=== PATIENT | male | born 1990 | race Caucasian/White ===

== ENCOUNTER 2024-06-22 10:14 | Emergency (ER) | payer SELFPAY ==
[2024-06-22 10:23] VITALS: BP 141/105
[2024-06-22 10:44] LABS: % Basophils 2.7 % (0-2); % Eosinophils 5.7 % (0-6); % Immature Granulocytes 0.2 % (0-0.5); % Lymphocytes 25.3 % (20.5-51.1); % Monocytes 9.4 % (1.7-9.3); % Neutrophils 56.7 % (42.2-75.2); Absolute Basophils 0.1 10^3/uL (0-0.2); Absolute Eosinophils 0.3 10^3/uL (0-0.7); Absolute Lymphocytes 1.3 10^3/uL (1.2-3.4); Absolute Monocytes 0.5 10^3/uL (0.1-0.6); Absolute Neutrophils 2.9 10^3/uL (1.4-6.5); Hematocrit 41.1 % (39.0-52.0); Hemoglobin 14.6 g/dL (13.0-18.0); Mean Corp Hgb Conc. 35.5 g/dL (33.0-37.0); Mean Corpuscular Hgb 30.9 pg (27.0-31.0); Mean Corpuscular Volume 86.9 fL (80.0-94.0); Nucleated Red Blood Cells % 0 % (-); Platelet Count 313 10^3/uL (130-400); Red Blood Cell Count 4.73 10^6/uL (4.70-6.10); Red Cell Dist. Width 12.7 % (11.5-14.5); White Blood Cell Count 5.1 10^3/uL (4.8-10.8)
[2024-06-22 10:56] LABS: Urine Albumin Negative (Neg - Trace); Urine Bilirubin Negative (Negative); Urine Character Clear (Clear); Urine Color Yellow; Urine Glucose Negative (Negative); Urine Ketone Negative (Negative); Urine Leukocyte Negative (Negative); Urine Nitrite Negative (Negative); Urine Occult Blood Negative (Negative); Urine Urobilinogen Negative (Neg - 1+)
[2024-06-22 11:02] LABS: ALT (SGPT) 57 U/L (0-50); AST (SGOT) 29 U/L (17-59); Albumin 4.8 g/dl (3.5-5.0); Alkaline Phosphatase 54 U/L (38-126); Blood Urea Nitrogen 11 mg/dl (9-20); Calcium 10.2 mg/dl (8.4-10.2); Carbon Dioxide 23 mmol/L (22-30); Chloride 108 mmol/L (98-107); Glucose 99 mg/dl (70-99); Lipase 97 U/L (23-300); Potassium 4.3 mmol/L (3.5-5.1); Sodium 142 mmol/L (135-145); Total Bilirubin 0.6 mg/dl (0.2-1.3); Total Protein 7.2 g/dl (6.3-8.2); eGFR > 60.00
--- NOTE | 2024-06-22 11:28 | ED.GENMED ---
History of Present Illness
General
Chief Complaint: Flank Pain
Source: patient
Exam Limitations: none
Time Seen by Provider: 06/22/24 11:17
History of Present Illness
History of Present Illness:
See MDM
Past History
Past History
ED Past Medical History: Other (Kidney stones)
ED Past Surgical History: None
Social History
Tobacco: Non-smoker
Alcohol: None
Phy Exam
Physical Exam
Physical Exam:
See MDM
Course
Orders/Labs/Results
Orders:
Orders
06/22/24 10:33
Complete Blood Count/With Diff Urgent
Comprehensive Metabolic Panel Urgent
Creatine Phosphokinase Urgent
Comment: ADD ON
Lipase Urgent
Urinalysis Reflex To Culture Urgent
Date Specimen was Collected: 06/22/24
Time Specimen was Collected: 10:28
06/22/24 11:26
Add On- LAB Urgent
Tests Added?: CPK
CT Abd/pelvis W Iv Cont Urgent
Comment:
Reason For Exam: b/l flank pain and constipation
Abnormal Lab Results
06/22/24
10:33
Monocytes % 9.4 H %
(1.7-9.3)
Basophils % 2.7 H %
(0-2)
Chloride 108 H mmol/L
(98-107)
ALT 57 H U/L
(0-50)
06/22/24 10:33
06/22/24 10:33
Vital Signs
Initial and Last Documented VS:
Initial Vital Signs
Temp Pulse Resp BP Pulse Ox
98.3 F 83 16 141/105 97
06/22/24 10:23 06/22/24 10:23 06/22/24 10:23 06/22/24 10:23 06/22/24 10:23
Last Documented Vital Signs
Temp Pulse Resp BP Pulse Ox
98.3 F 67 14 133/93 99
06/22/24 10:23 06/22/24 13:45 06/22/24 13:45 06/22/24 13:02 06/22/24 13:45
MDM/Problems Addressed
Differential Diagnosis Includes:
HPI and MDM Narrative:
33-year-old male presenting with approximately 1 month of bilateral flank pain, generalized abdominal pain, constipation and bilateral thigh pain. Patient states his biggest concern is that he could have kidney stone or kidney cancer or colon
cancer. He states he went to an outside hospital and did not like the care that he received so he came here.
On exam, he is well-appearing nontoxic. The bilateral thigh pain he points to his bilateral quadricep pain. He states he feels a lump there that I cannot appreciate.
Will obtain basic blood work and will add on CPK. We discussed that a CT scan is not necessarily diagnostic of kidney cancers or colon cancers discussed outpatient follow-up with urology or GI if he is truly concerned
Physical exam
General: Well appearing and non-toxic
HEENT: protecting airway. Mildly dry mucous membrane
Neck: appears supple
CV: No evidence of cyanosis
Resp: No accessory muscle use
Abd: Non-distended. No significant tenderness
Back: No significant flank tenderness
Extremities: No deformities. No quadricep abnormality noted
Neuro: alert
Psych: Normal affect
Skin: Intact
Problems Addressed including Acute and Chronic Conditions affecting care:
1. Bilateral flank
Acuity: acute
Prognosis: stable
Details: Urinalysis is negative. Will obtain CT
2. Constipation
Acuity: acute
Prognosis: stable
Details: Will assess stool burden on CT
3. Thigh pain
Acuity: acute
Prognosis: stable
Details: No clinical signs of DVT. Will add on CPK
Updates
Labs and urine without significant abnormality. CT shows concern for mild enteritis. There is incidental pulmonary nodule. I went over the findings with the patient and he received a printout of the blood work and CT findings and discussed
follow-up with PCP
Differential Diagnosis (but not limited to): Rhabdomyolysis, constipation, kidney stone
Testing considered: Renal ultrasound
Drug therapy (if applicable): OTC meds, please see d/c instruction regarding Rx drugs
Amount and/or Complexity of Data Reviewed
Clinical info obtained from: Patient
External data reviewed: N/A
Labs I independently reviewed (but not limited to): White blood cell count normal
Radiology: The CT scan was personally and independently reviewed. In addition, official CT report reviewed.
Pulse Ox: not hypoxic
EKG independently reviewed: N/A
[place]: N/A
Critical Care: N/A
Risk of Complication:
Social Determinants of health: Good social support
Discussed with other providers: N/A
Escalation of Care includes Admit/Obs: After being observed in the Emergency Department, pt stable for discharge.
Occasional wrong word or 'sound a like' substitutions may have occurred due to the inherent limitations of voice recognition software. Read the chart carefully and recognize, using context, where substitutions have occurred.
*Critical Care Note
Total Time (30-74mins, 75-104mins- exclusive of procedures): Not Applicable
ED Attending Note
-
Portions of this chart may have been created with voice recognition software.� Occasional wrong word or��sound alike� substitutions may have occurred due to the inherent limitations of voice recognition software.
Discharge Plan
Departure
Patient Disposition: Home (Routine Discharge)
Date of Disposition: 06/22/24
Time of Disposition: 13:52
Patient with high blood pressure during this ER visit?: No
Discharge Problem:
Abdominal pain
Instructions: Pulmonary nodule, Abdominal Pain, Adult ED
Referrals:
NONE,* [Family Provider] -
Activity Restrictions/Additional Instructions:
Please return for any worsening symptoms.
You may return at any time if you have further concerns.
Please follow up with your doctor at the first available appointment, preferably this week.
As we discussed, the CT of your belly indicated that you could have a small viral infection that should resolve on its own. It did also mention a incidental pulmonary nodule. Please bring in the blood work and the CT findings to your primary
doctor.
Thank you for choosing [facility].
Interventions
Interventions:
*Risk Screen - Suicide Last Done: 06/22/24 11:45
*General Assessment Last Done: 06/22/24 11:45
*Neglect/Abuse Screening Last Done: 06/22/24 11:45
*ED COVID-19 Vaccine History Last Done: 06/22/24 11:45
GO-Lkhkdx-Jjkqbinocg Assessment Last Done: 06/22/24 11:45
ED-Male Genitourinary Assessment Last Done: 06/22/24 11:45
Discharge Date and Time
Print Language: ANDORRAN
[2024-06-22 11:40] VITALS: BP 134/97
[2024-06-22 12:01] VITALS: BP 112/81
[2024-06-22 12:45] LABS: Creatine Phosphokinase 79 U/L (55-170)
[2024-06-22 13:02] VITALS: BP 133/93
== END 2024-06-22 14:13 | disposition home or self-care (01) ==
LOC: EMR 10:14
PROVIDERS: Emergency Medicine; EMERGENCY PHYSICIAN Student in an Organized Health Care Education/Training Program
DX: R10.9 Unspecified abdominal pain (principal); Z87.442 Personal history of urinary calculi
CPT/HCPCS: 99284; 74177; 80053; 81003; 82550; 83690; 85025; Q9967

== ENCOUNTER 2024-09-30 16:22 | Emergency (ER) | payer OTHER, SELFPAY ==
[2024-09-30 16:25] VITALS: BP 116/82
[2024-09-30 17:10] LABS: % Basophils 1.8 % (0-2); % Eosinophils 2.8 % (0-6); % Immature Granulocytes 0.3 % (0-0.5); % Lymphocytes 21.4 % (20.5-51.1); % Monocytes 7.2 % (1.7-9.3); % Neutrophils 66.5 % (42.2-75.2); Absolute Basophils 0.1 10^3/uL (0-0.2); Absolute Eosinophils 0.2 10^3/uL (0-0.7); Absolute Lymphocytes 1.6 10^3/uL (1.2-3.4); Absolute Monocytes 0.6 10^3/uL (0.1-0.6); Absolute Neutrophils 5.1 10^3/uL (1.4-6.5); Hematocrit 42.5 % (39.0-52.0); Hemoglobin 14.7 g/dL (13.0-18.0); Mean Corp Hgb Conc. 34.6 g/dL (33.0-37.0); Mean Corpuscular Hgb 31.1 pg (27.0-31.0); Mean Corpuscular Volume 89.9 fL (80.0-94.0); Mean Platelet Volume 8.9 fL (7.4-10.4); Nucleated Red Blood Cells % 0 % (-); Platelet Count 282 10^3/uL (130-400); Red Blood Cell Count 4.73 10^6/uL (4.70-6.10); Red Cell Dist. Width 12.6 % (11.5-14.5); White Blood Cell Count 7.6 10^3/uL (4.8-10.8)
[2024-09-30 17:17] LABS: INR 0.96; PT 13.3 Sec (11.4-14.6)
[2024-09-30 17:18] LABS: APTT 28.9 Sec (23.4-35.0)
[2024-09-30 17:23] LABS: ALT (SGPT) 19 U/L (0-50); AST (SGOT) 19 U/L (17-59); Alkaline Phosphatase 74 U/L (38-126); Blood Urea Nitrogen 14 mg/dl (9-20); Calcium 9.6 mg/dl (8.4-10.2); Carbon Dioxide 28 mmol/L (22-30); Chloride 99 mmol/L (98-107); Glucose 98 mg/dl (70-99); Potassium 3.7 mmol/L (3.5-5.1); Sodium 135 mmol/L (135-145); Total Protein 7.3 g/dl (6.3-8.2); eGFR > 60.00
[2024-09-30 17:32] LABS: Troponin I < 0.012 ng/ml
--- NOTE | 2024-09-30 17:56 | ED.GENMED ---
History of Present Illness
General
Chief Complaint: Chest Pain
Source: patient
Exam Limitations: none
Time Seen by Provider: 09/30/24 17:30
Nursing documentation reviewed up to this point in time: agreed with
History of Present Illness
History of Present Illness:
Patient is a 33-year male who presents to the ER for evaluation of chest pain off and on for the past several months. He reports he has not in his chest behind the shoulder blades in the left neck and arm. He reports he does have difficulty
breathing when he gets the symptoms. He does have anxiety. He admits he is very anxious over the symptoms. He quit smoking 2 weeks ago but does smoke marijuana and also vapes. He denies any medical history. He just recently started a job as a
[employer] , denies injury but ''does a lot of isaias and sitting in a chair.'
Past History
Past History
ED Past Medical History: Other (Kidney stones)
ED Past Surgical History: None
Social History
Tobacco: Non-smoker
Alcohol: None
Review of Systems
Review of Systems
Allergies reviewed?: Yes
All Other Systems: ROS reviewed and negative except as documented in HPI and ROS
Constitutional: Reports no symptoms; Denies fever, fatigue or chills
Respiratory: Reports trouble breathing
Cardiac: Reports chest pain
ABD/GI: Reports no symptoms
: Reports no symptoms
Musculoskeletal: Reports no symptoms
Skin: Reports no symptoms
Neurological: Reports no symptoms
Psychiatric: Reports no symptoms
Phy Exam
General Physical Exam
General Presentation: no apparent distress
General age: appears stated age
General Skin: warm and dry
General Habitus: normal
General Mental: alert
Cardiovascular Exam
Cardiovascular Exam: regular rate/rhythm and no murmur
Pulmonary Exam
Pulmonary Exam: lungs clear, no respiratory distress and chest non tender
Neurological Exam
Neurological Exam: alert and oriented x3
Musculoskeletal Exam
Musculoskeletal Exam: full ROM and other (No lower extremity swelling)
Skin Exam
Skin Exam: normal color and warm/dry
Psychiatric Exam
Psychiatric Exam: normal mood/affect
Scores
Heart Score for Chest Pain Patients
STEMI patient?: Not applicable
Course
Orders/Labs/Results
Orders:
Orders
09/30/24 16:24
Electrocardiogram (*1) Urgent
Reason for Study: Chest Pain
EKG- Treatment ONCE
09/30/24 16:55
Complete Blood Count/With Diff Urgent
Comprehensive Metabolic Panel Urgent
Protime/PTT Urgent
Troponin I Urgent
09/30/24 17:57
Chest [CR Chest - 2 Views ] Urgent
Comment:
Reason For Exam: cp
09/30/24 18:33
DDimer [D-Dimer] Urgent
Abnormal Lab Results
09/30/24
16:55
MCH 31.1 H pg
(27.0-31.0)
09/30/24 16:55
09/30/24 16:55
Vital Signs
Initial and Last Documented VS:
Initial Vital Signs
Temp Pulse Resp BP Pulse Ox
98.2 F 89 18 116/82 100
09/30/24 16:25 09/30/24 16:25 09/30/24 16:25 09/30/24 16:25 09/30/24 16:25
Last Documented Vital Signs
Temp Pulse Resp BP Pulse Ox
98.2 F 66 18 116/82 98
09/30/24 16:25 09/30/24 18:00 09/30/24 18:00 09/30/24 16:25 09/30/24 18:00
MDM/Problems Addressed
MDM/Problems Addressed:
No concerning findings during patient's workup. He has had this pain off and on for months however also has anxiety and very anxious over his symptoms. Cardiac troponin negative D-dimer negative no acute findings on chest x-ray negative things and
EKG stable for discharge home with PCP follow-up
*Radiology
Radiology exam reviewed: radiology read reviewed
*Pulse Oximetry
Patient hypoxic: no
*EKG
Interpreted by ED Provider?: Yes
Interpretation: normal
Comparison EKG: no comparison EKG present
Heart Rate: 66
Rate: normal
Rhythm: sinus
Ischemia: no ischemia
*Critical Care Note
Total Time (30-74mins, 75-104mins- exclusive of procedures): Not Applicable
ED Attending Note
-
Portions of this chart may have been created with voice recognition software.� Occasional wrong word or��sound alike� substitutions may have occurred due to the inherent limitations of voice recognition software.
Discharge Plan
Departure
Patient Disposition: Home (Routine Discharge)
Date of Disposition: 09/30/24
Time of Disposition: 19:36
Patient with high blood pressure during this ER visit?: No
Condition: Fair
Covid-19: Not Applicable
Discharge Problem:
Chest pain
Instructions: Chest Pain That Is Not Caused by the Heart (DC)
Referrals:
Deb Allred MD [Family Provider] -
Activity Restrictions/Additional Instructions:
Follow-up with family doctor the next several days return if any worsening of symptoms
Interventions
Interventions:
*Risk Screen - Suicide Last Done: 09/30/24 16:25
*General Assessment Last Done: 09/30/24 16:25
*Neglect/Abuse Screening Last Done: 09/30/24 16:25
*ED COVID-19 Vaccine History Last Done: 09/30/24 16:25
ED- Cardiac Assessment Last Done: 09/30/24 19:10
Discharge Date and Time
Print Language: KOREAN
[2024-09-30 19:18] LABS: D-Dimer < 0.27 ug/mlFEU (0.00-0.50)
== END 2024-09-30 20:07 | disposition home or self-care (01) ==
LOC: EMR 16:22
PROVIDERS: Nurse Practitioner; EMERGENCY PHYSICIAN Emergency Medicine; FAMILY PHYSICIAN Internal Medicine
DX: R07.9 Chest pain, unspecified (principal); F41.9 Anxiety disorder, unspecified; F12.90 Cannabis use, unspecified, uncomplicated; Z87.891 Personal history of nicotine dependence
CPT/HCPCS: 99285; 71046; 80053; 84484; 85025; 85379; 85610; 85730; 93005